=== PATIENT | male | born 1945 | race Hispanic/Latino ===

== ENCOUNTER 2018-12-10 20:27 | Emergency (ER) | payer OTHER | END 2018-12-10 21:23 | disposition home or self-care (01) | LOC: EDH 20:27 | DX: S60.352A Superficial foreign body of left thumb, initial encounter (principal); I10 Essential (primary) hypertension; Z88.0 Allergy status to penicillin; Z87.891 Personal history of nicotine dependence; Z98.890 Other specified postprocedural states; W26.8XXA Contact with other sharp object(s), not elsewhere classified, initial encounter; Y93.89 Activity, other specified; Y92.89 Other specified places as the place of occurrence of the external cause; Y99.8 Other external cause status | CPT/HCPCS: 73140 ==

== ENCOUNTER 2022-02-05 11:35 | Inpatient (IN) | payer OTHER ==
[~2022-02-05] VITALS: Ht 175.3 cm; Wt 77.9 kg
[2022-02-05 12:13] LABS: BASOPHILS % (AUTO) 0.7 % (0.0-5.0); EOSINOPHILS % (AUTO) 1.8 % (0.0-8.0); HEMATOCRIT 41.5 % (42-54); LYMPHOCYTES % (AUTO) 18.1 % (21.0-51.0); MEAN CORPUSCULAR HEMOGLOBIN 29.9 pg (27.0-33.0); MEAN CORPUSCULAR HGB CONC 34.5 g/dL (32.0-36.0); MEAN CORPUSCULAR VOLUME 86.6 fL (79-99); MONOCYTES % (AUTO) 11.3 % (3.0-13.0); NEUTROPHILS % (AUTO) 67.4 % (40.0-77.0); PLATELET COUNT (AUTO) 193 K/uL (130-400); RED BLOOD CELL COUNT(AUTO) 4.79 MIL/uL (4.50-6.20); RED CELL DISTRIBUTION WIDTH 13.8 % (11.0-15.5); WHITE BLOOD COUNT (AUTO) 5.7 K/uL (4.8-10.8)
[2022-02-05 12:16] LABS: APPEARANCE,URINE CLEAR (CLEAR); BILIRUBIN,URINE LARGE (NEGATIVE); COLOR,URINE DARK YELLOW (YELLOW); GLUCOSE, URINE (UA) NEGATIVE (NEGATIVE); KETONES,URINE NEGATIVE (NEGATIVE); LEUKOCYTE ESTERASE ,URINE NEGATIVE (NEGATIVE); NITRATE,URINE NEGATIVE (NEGATIVE); OCCULT BLOOD,URINE NEGATIVE (NEGATIVE); PH,URINE 6.5 (5.0-8.0); PROTEIN,URINE TRACE mg/dL (NEGATIVE)
[2022-02-05 12:23] LABS: CARBON DIOXIDE 28 mmol/L (21-32); CHLORIDE 99 mmol/L (101-111); CREATININE 1.1 mg/dL (0.5-1.5); GLOMERULAR FILTR. RATE CALC 69 mL/min (>60); GLUCOSE,RANDOM 192 mg/dL (70-105); POTASSIUM 3.7 mmol/L (3.5-5.1); SODIUM SERUM 136 mmol/L (136-145); UREA NITROGEN, BLOOD 13 mg/dL (7-18)
[2022-02-05 12:25] LABS: INR 0.98 (0.85-1.15); PROTHROMBIN TIME 10.7 SEC (9.6-11.6)
[2022-02-05 12:26] LABS: PARTIAL THROMBOPLASTIN TIME 26.6 SEC (26.3-35.5)
[2022-02-05 12:28] LABS: ALANINE AMINOTRANSFERASE 156 U/L (12-78); ALBUMIN 3.6 g/dL (3.5-5.0); ASPARTATE AMINOTRANSFERASE 73 U/L (10-37); TOTAL PROTEIN, SERUM 7.5 g/dL (6.0-8.3)
[2022-02-05 12:46] LABS: AMMONIA < 10 umol/L (11-32)
[2022-02-05 13:06] LABS: BACTERIA,URINE None Seen /HPF (None Seen); RBC,URINE None Seen /HPF (0-1); SQUAMOUS EPITHELIAL CELL,UR 0-2 /HPF (0-2); WBC,URINE None Seen /HPF (0-1)
[2022-02-05] MEDS ORDERED: DiphenhydrAMINE HCL 50 MG/ML VIAL IV ONE (14:00)
[2022-02-05] MEDS ORDERED: 0.9% NACL 500ML IV.SOLN 500 ML IV ONE (14:00)
[2022-02-05] MEDS ORDERED: ONDANSETRON 4MG INJ IVP ONE (14:00)
[2022-02-05] MEDS ORDERED: MORPHINE 2 MG SYG IVP ONE (14:00)
[2022-02-05] MEDS ORDERED: IOHEXOL 350 MG/ML 100ML INFUS..BTL IV ONE (14:08)
[2022-02-05] MEDS ORDERED: BISACODYL 5 MG TABLET.DR PO PRN (17:00)
[2022-02-05] MEDS ORDERED: ONDANSETRON 4MG INJ IV PRN (17:00)
[2022-02-05] MEDS ORDERED: HYDROMORPHONE 0.5 MG SYG (0.5MG/0.5ML) IVP PRN ×2 (17:00)
[2022-02-05] MEDS ORDERED: NITROGLYCERIN 0.4 MG SL TAB SL PRN (17:00)
[2022-02-05] MEDS ORDERED: ACETAMINOPHEN 325 MG TAB PO PRN ×2 (17:00)
[2022-02-05] MEDS ORDERED: DiphenhydrAMINE HCL 50 MG/ML VIAL IV PRN (17:00)
[2022-02-05] MEDS: 0.9%NACL 1000ML 1,000 ML IV SCH (17:08)
[2022-02-05] MEDS ORDERED: TAMS-1 PO (17:55)
[2022-02-05] MEDS ORDERED: OMEP40CA21 PO (17:55)
[2022-02-05] MEDS ORDERED: LISI40TA9 PO (17:55)
[2022-02-05] MEDS ORDERED: HYDR12.54 PO (17:55)
[2022-02-05 18:15] VITALS: BP 124/66
[2022-02-05 19:30] LABS: ALBUMIN 4.1 g/dL (3.5-5.0); BILIRUBIN,DIRECT 7.4 mg/dL (0.0-0.3); TOTAL PROTEIN, SERUM 7.9 g/dL (6.0-8.3)
[2022-02-05 20:00] VITALS: BP 134/62
[2022-02-05] MEDS: FAMOTIDINE 20MG VIAL IV SCH (20:54)
[2022-02-06] VITALS (21 sets, daily range): BP systolic 100–166; BP diastolic 55–98
[2022-02-06] MEDS: 0.9%NACL 1000ML 1,000 ML IV SCH ×2 (02:50→20:42)
[2022-02-06 04:44] LABS: HEMATOCRIT 38.9 % (42-54); MEAN CORPUSCULAR HEMOGLOBIN 29.7 pg (27.0-33.0); MEAN CORPUSCULAR HGB CONC 34.2 g/dL (32.0-36.0); MEAN CORPUSCULAR VOLUME 86.8 fL (79-99); RED BLOOD CELL COUNT(AUTO) 4.48 MIL/uL (4.50-6.20); WHITE BLOOD COUNT (AUTO) 4.7 K/uL (4.8-10.8)
[2022-02-06 04:59] LABS: PROTHROMBIN TIME 10.9 SEC (9.6-11.6)
[2022-02-06] MEDS: FAMOTIDINE 20MG VIAL IV SCH ×2 (08:54→20:42)
[2022-02-06] MEDS ORDERED: LORAZEPAM 2 MG/ML 1 ML VIAL IVP SCH (13:00)
[2022-02-06] MEDS ORDERED: LORAZEPAM 2 MG/ML 1 ML VIAL IM ONE (13:00)
[2022-02-06] MEDS ORDERED: LORAZEPAM 2 MG/ML 1 ML VIAL IVP ONE (13:00)
[2022-02-06] MEDS ORDERED: LIDOCAINE PF 100MG/5ML (2%) SYRINGE 5ML ONE (14:43)
[2022-02-06] MEDS ORDERED: DEXAMETHASONE SOD PHOSPHATE 10MG/ML 1ML VIAL ONE (14:43)
[2022-02-06] MEDS ORDERED: SUCCINYLCHOLINE CHLORIDE 20 MG/ML 10 ML VIAL ONE (14:43)
[2022-02-06] MEDS ORDERED: MIDAZOLAM HCL 1 MG/ML 2ML VIAL ONE (14:43)
[2022-02-06] MEDS ORDERED: ONDANSETRON 4MG INJ ONE (14:44)
[2022-02-06] MEDS ORDERED: FENTANYL CITRATE PF 50 MCG/1 ML 2ML VIAL ONE (14:44)
[2022-02-06] MEDS ORDERED: NEOSTIGMINE 5MG/5ML SYR IV ONE (14:44)
[2022-02-06] MEDS ORDERED: PROPOFOL 10 MG/ML 20ML VIAL IV ONE (14:44)
[2022-02-06] MEDS ORDERED: ROCURONIUM 10MG/1ML SYR 10 MG/ML ML ONE (14:44)
[2022-02-06] MEDS ORDERED: GLYCOPYRROLATE 1 MG/5 ML SYRINGE ONE (14:44)
[2022-02-06] MEDS ORDERED: IOHEXOL-350 50ML VIAL IV ONE (14:58)
[2022-02-06] MEDS ORDERED: GLUCAGON 1MG KIT 1 MG ML ONE (15:32)
[2022-02-07 00:34] LABS: HEPATITIS A IGM ANTIBODY Non-Reactive (Nonreactive); HEPATITIS B CORE IGM ANTIBODY Non-Reactive (Negative); HEPATITIS B SURFACE ANTIGEN Non-Reactive (Nonreactive); HEPATITIS C ANTIBODY Non-Reactive (Nonreactive)
[2022-02-07 03:21] VITALS: BP 134/74
[2022-02-07 07:00] VITALS: BP 135/71
[2022-02-07] MEDS: 0.9%NACL 1000ML 1,000 ML IV SCH ×2 (08:53→20:07)
[2022-02-07] MEDS: FAMOTIDINE 20MG VIAL IV SCH ×2 (08:53→20:07)
[2022-02-07 10:14] LABS: BASOPHILS % (AUTO) 0.2 % (0.0-5.0); HEMATOCRIT 40.5 % (42-54); LYMPHOCYTES % (AUTO) 10.9 % (21.0-51.0); MEAN CORPUSCULAR HEMOGLOBIN 29.8 pg (27.0-33.0); MEAN CORPUSCULAR HGB CONC 34.6 g/dL (32.0-36.0); MEAN CORPUSCULAR VOLUME 86.2 fL (79-99); MONOCYTES % (AUTO) 9.2 % (3.0-13.0); NEUTROPHILS % (AUTO) 79.1 % (40.0-77.0); PLATELET COUNT (AUTO) 194 K/uL (130-400); WHITE BLOOD COUNT (AUTO) 6.6 K/uL (4.8-10.8)
[2022-02-07 10:15] LABS: CREATININE 1.3 mg/dL (0.5-1.5); POTASSIUM 3.6 mmol/L (3.5-5.1)
[2022-02-07 10:20] LABS: ALBUMIN 3.1 g/dL (3.5-5.0); TOTAL PROTEIN, SERUM 6.8 g/dL (6.0-8.3)
[2022-02-07] MEDS ORDERED: LORAZEPAM 1 MG TABLET PO SCH (10:30)
[2022-02-07 11:00] VITALS: BP 141/72
[2022-02-07 15:05] VITALS: BP 115/71
[2022-02-07 20:33] VITALS: BP 135/66
[2022-02-07 23:24] VITALS: BP 127/60
[2022-02-08] MEDS: 0.9%NACL 1000ML 1,000 ML IV SCH (04:21)
[2022-02-08 04:26] VITALS: BP 142/76
[2022-02-08 07:20] VITALS: BP 145/71
[2022-02-08] MEDS: FAMOTIDINE 20MG VIAL IV SCH (10:57)
[2022-02-08 11:00] VITALS: BP 156/73
[2022-02-08 14:17] LABS: HEMATOCRIT 38.9 % (42-54); MEAN CORPUSCULAR HEMOGLOBIN 29.6 pg (27.0-33.0); MEAN CORPUSCULAR HGB CONC 34.2 g/dL (32.0-36.0); MEAN CORPUSCULAR VOLUME 86.4 fL (79-99); RED BLOOD CELL COUNT(AUTO) 4.5 MIL/uL (4.50-6.20); RED CELL DISTRIBUTION WIDTH 14.5 % (11.0-15.5); WHITE BLOOD COUNT (AUTO) 5.3 K/uL (4.8-10.8)
[2022-02-08 14:27] LABS: POTASSIUM 3.1 mmol/L (3.5-5.1)
[2022-02-08] MEDS ORDERED: LISINOPRIL 10 MG TABLET PO SCH (14:30)
[2022-02-08 14:31] LABS: ALBUMIN 2.9 g/dL (3.5-5.0); MAGNESIUM 1.7 mg/dL (1.80-2.40); PHOSPHORUS 2.7 mg/dL (2.5-4.9); TOTAL PROTEIN, SERUM 6.3 g/dL (6.0-8.3)
[2022-02-08 15:00] VITALS: BP 148/73
[2022-02-08 20:29] VITALS: BP 137/68
[2022-02-08] MEDS ORDERED: MAGNESIUM OXIDE 400 MG TABLET PO SCH (22:30)
[2022-02-08] MEDS ORDERED: KCL 20 MEQ ERTAB PO ONE ×2 (22:30→22:57)
[2022-02-08] MEDS ORDERED: MAGNESIUM OXIDE 400 MG TABLET PO ONE (22:57)
[2022-02-09] VITALS (16 sets, daily range): BP systolic 90–153; BP diastolic 56–81
[2022-02-09] MEDS: TAMSULOSIN HCL 0.4 MG CAP.ER.24H PO SCH (08:48)
[2022-02-09] MEDS: HYDROCHLOROTHIAZIDE 25 MG TABLET PO SCH (08:48)
[2022-02-09] MEDS: LISINOPRIL 20 MG TABLET PO SCH (08:50)
[2022-02-09] MEDS ORDERED: LISINOPRIL 10 MG TABLET PO SCH (09:00)
[2022-02-09] MEDS ORDERED: PROPOFOL 10 MG/ML 20ML VIAL IV ONE ×2 (16:44→17:09)
[2022-02-09] MEDS ORDERED: FENTANYL CITRATE PF 50 MCG/1 ML 2ML VIAL ONE (16:44)
[2022-02-09] MEDS ORDERED: SUCCINYLCHOLINE 200MG/10ML SYR ONE (16:45)
[2022-02-09] MEDS ORDERED: LIDOCAINE HCL 1% 20 ML VIAL ONE (16:45)
[2022-02-09] MEDS ORDERED: IOHEXOL-350 50ML VIAL IV ONE (16:55)
[2022-02-10] VITALS: BP 134/64
[2022-02-10 04:08] LABS: HEMATOCRIT 36.1 % (42-54); MEAN CORPUSCULAR HEMOGLOBIN 29.7 pg (27.0-33.0); MEAN CORPUSCULAR HGB CONC 34.6 g/dL (32.0-36.0); MEAN CORPUSCULAR VOLUME 85.7 fL (79-99); RED BLOOD CELL COUNT(AUTO) 4.21 MIL/uL (4.50-6.20); RED CELL DISTRIBUTION WIDTH 14.8 % (11.0-15.5); WHITE BLOOD COUNT (AUTO) 5.6 K/uL (4.8-10.8)
[2022-02-10 04:11] VITALS: BP 120/67
[2022-02-10 04:21] LABS: INR 1.1 (0.85-1.15); PROTHROMBIN TIME 11.9 SEC (9.6-11.6)
[2022-02-10 04:22] LABS: PARTIAL THROMBOPLASTIN TIME 26.8 SEC (26.3-35.5)
[2022-02-10 04:28] LABS: ALBUMIN 2.5 g/dL (3.5-5.0); CREATININE 0.9 mg/dL (0.5-1.5); POTASSIUM 4.5 mmol/L (3.5-5.1); TOTAL PROTEIN, SERUM 6.1 g/dL (6.0-8.3)
[2022-02-10 08:00] VITALS: BP 150/77
[2022-02-10] MEDS: LISINOPRIL 20 MG TABLET PO SCH (08:29)
[2022-02-10] MEDS: HYDROCHLOROTHIAZIDE 25 MG TABLET PO SCH (08:29)
[2022-02-10] MEDS: TAMSULOSIN HCL 0.4 MG CAP.ER.24H PO SCH (08:29)
[2022-02-10] MEDS: PANTOPRAZOLE 40 MG/VIAL IVP SCH (08:29)
[2022-02-10 11:44] VITALS: BP 135/76
[2022-02-10 16:00] VITALS: BP 117/69
[2022-02-10 20:27] VITALS: BP 138/72
[2022-02-11 00:12] VITALS: BP 117/61
[2022-02-11 03:47] LABS: BASOPHILS % (AUTO) 0.5 % (0.0-5.0); EOSINOPHILS % (AUTO) 3.1 % (0.0-8.0); HEMATOCRIT 39.2 % (42-54); LYMPHOCYTES % (AUTO) 17.7 % (21.0-51.0); MEAN CORPUSCULAR HEMOGLOBIN 29.7 pg (27.0-33.0); MEAN CORPUSCULAR HGB CONC 35.2 g/dL (32.0-36.0); MEAN CORPUSCULAR VOLUME 84.3 fL (79-99); MONOCYTES % (AUTO) 14.3 % (3.0-13.0); PLATELET COUNT (AUTO) 200 K/uL (130-400); RED BLOOD CELL COUNT(AUTO) 4.65 MIL/uL (4.50-6.20); RED CELL DISTRIBUTION WIDTH 14.8 % (11.0-15.5); WHITE BLOOD COUNT (AUTO) 5.8 K/uL (4.8-10.8)
[2022-02-11 04:05] LABS: ALBUMIN 2.9 g/dL (3.5-5.0); CREATININE 0.9 mg/dL (0.5-1.5); POTASSIUM 3.4 mmol/L (3.5-5.1); TOTAL PROTEIN, SERUM 6.5 g/dL (6.0-8.3)
[2022-02-11 04:49] VITALS: BP 122/69
[2022-02-11 08:00] VITALS: BP 142/78
[2022-02-11] MEDS: LISINOPRIL 20 MG TABLET PO SCH (08:53)
[2022-02-11] MEDS: DIPHENHYDRAMINE HCL 25 MG CAPSULE PO PRN ×2 (08:53→21:22)
[2022-02-11] MEDS: TAMSULOSIN HCL 0.4 MG CAP.ER.24H PO SCH (08:53)
[2022-02-11] MEDS: PANTOPRAZOLE 40 MG/VIAL IVP SCH (08:53)
[2022-02-11] MEDS: HYDROCHLOROTHIAZIDE 25 MG TABLET PO SCH (08:53)
[2022-02-11 11:49] VITALS: BP 137/78
[2022-02-11 16:00] VITALS: BP 142/71
[2022-02-11 21:17] VITALS: BP 143/70
[2022-02-12] VITALS (23 sets, daily range): BP systolic 107–148; BP diastolic 60–81
[2022-02-12 04:00] LABS: BASOPHILS % (AUTO) 0.7 % (0.0-5.0); EOSINOPHILS % (AUTO) 4.1 % (0.0-8.0); HEMATOCRIT 36.1 % (42-54); LYMPHOCYTES % (AUTO) 18.7 % (21.0-51.0); MEAN CORPUSCULAR HEMOGLOBIN 29.6 pg (27.0-33.0); MEAN CORPUSCULAR HGB CONC 35.5 g/dL (32.0-36.0); MEAN CORPUSCULAR VOLUME 83.6 fL (79-99); MONOCYTES % (AUTO) 16.1 % (3.0-13.0); NEUTROPHILS % (AUTO) 58.9 % (40.0-77.0); PLATELET COUNT (AUTO) 195 K/uL (130-400); RED BLOOD CELL COUNT(AUTO) 4.32 MIL/uL (4.50-6.20); RED CELL DISTRIBUTION WIDTH 14.9 % (11.0-15.5); WHITE BLOOD COUNT (AUTO) 5.4 K/uL (4.8-10.8)
[2022-02-12 04:17] LABS: ALBUMIN 2.8 g/dL (3.5-5.0); POTASSIUM 3.1 mmol/L (3.5-5.1); TOTAL PROTEIN, SERUM 6.3 g/dL (6.0-8.3)
[2022-02-12] MEDS: 0.9%NACL 1000ML 1,000 ML IV SCH ×4 (07:48→23:00)
[2022-02-12] MEDS: PANTOPRAZOLE 40 MG/VIAL IVP SCH (08:42)
[2022-02-12] MEDS: LISINOPRIL 20 MG TABLET PO SCH (08:43)
[2022-02-12] MEDS: HYDROCHLOROTHIAZIDE 25 MG TABLET PO SCH (08:43)
[2022-02-12] MEDS: TAMSULOSIN HCL 0.4 MG CAP.ER.24H PO SCH (08:43)
[2022-02-12] MEDS ORDERED: LIDOCAINE PF 100MG/5ML (2%) SYRINGE 5ML ONE (13:17)
[2022-02-12] MEDS ORDERED: SUCCINYLCHOLINE CHLORIDE 20 MG/ML 10 ML VIAL ONE (13:17)
[2022-02-12] MEDS ORDERED: DEXAMETHASONE SOD PHOSPHATE 10MG/ML 1ML VIAL ONE (13:17)
[2022-02-12] MEDS ORDERED: NEOSTIGMINE 5MG/5ML SYR IV ONE (13:18)
[2022-02-12] MEDS ORDERED: FENTANYL CITRATE PF 50 MCG/1 ML 2ML VIAL ONE ×2 (13:18→16:02)
[2022-02-12] MEDS ORDERED: ONDANSETRON 4MG INJ ONE (13:18)
[2022-02-12] MEDS ORDERED: MIDAZOLAM HCL 1 MG/ML 2ML VIAL ONE (13:18)
[2022-02-12] MEDS ORDERED: ROCURONIUM 10MG/1ML SYR 10 MG/ML ML ONE (13:18)
[2022-02-12] MEDS ORDERED: PROPOFOL 10 MG/ML 20ML VIAL IV ONE (13:18)
[2022-02-12] MEDS ORDERED: GLYCOPYRROLATE 1 MG/5 ML SYRINGE ONE (13:18)
[2022-02-12] MEDS ORDERED: IODIXANOL 320 MG/ML 100 ML VIAL ONE (15:51)
[2022-02-12] MEDS ORDERED: LIDOCAINE HCL 1% 20 ML VIAL ONE (15:51)
[2022-02-12] MEDS ORDERED: SUGAMMADEX SODIUM 200 MG/2 ML VIAL IV ONE (16:49)
[2022-02-12] MEDS ORDERED: CLINDAMYCIN IV SCH (17:00)
[2022-02-12] MEDS ORDERED: CLINDAMYCIN IVPB 900MG/50ML 50 ML IV SCH (17:00)
[2022-02-12] MEDS ORDERED: D5W IV SCH (17:00)
[2022-02-12] MEDS ORDERED: KETOROLAC 15MG/ML VIAL (15MG/ML) ONE (19:53)
[2022-02-12] MEDS ORDERED: KETOROLAC 15MG/ML VIAL (15MG/ML) IV PRN (20:00)
[2022-02-12] MEDS: CLINDAMYCIN IVPB 900MG/50ML 50 ML IV SCH (20:11)
[2022-02-12] MEDS ORDERED: MORPHINE 2 MG SYG IVP PRN (20:30)
[2022-02-12] MEDS ORDERED: ONDANSETRON 4MG INJ IVP PRN (20:30)
[2022-02-13 03:41] VITALS: BP 139/74
[2022-02-13 03:57] LABS: BASOPHILS % (AUTO) 0.2 % (0.0-5.0); HEMATOCRIT 36.9 % (42-54); LYMPHOCYTES % (AUTO) 14.3 % (21.0-51.0); MEAN CORPUSCULAR HEMOGLOBIN 29.6 pg (27.0-33.0); MEAN CORPUSCULAR VOLUME 82.2 fL (79-99); MONOCYTES % (AUTO) 1.6 % (3.0-13.0); NEUTROPHILS % (AUTO) 81.6 % (40.0-77.0); PLATELET COUNT (AUTO) 196 K/uL (130-400); RED BLOOD CELL COUNT(AUTO) 4.49 MIL/uL (4.50-6.20); RED CELL DISTRIBUTION WIDTH 15.1 % (11.0-15.5); WHITE BLOOD COUNT (AUTO) 4.3 K/uL (4.8-10.8)
[2022-02-13 04:21] LABS: ALBUMIN 2.5 g/dL (3.5-5.0); CREATININE 1.3 mg/dL (0.5-1.5); POTASSIUM 3.8 mmol/L (3.5-5.1); TOTAL PROTEIN, SERUM 6.1 g/dL (6.0-8.3)
[2022-02-13] MEDS: CLINDAMYCIN IVPB 900MG/50ML 50 ML IV SCH (05:31)
[2022-02-13] MEDS: 0.9%NACL 1000ML 1,000 ML IV SCH ×2 (07:00→23:00)
[2022-02-13 08:00] VITALS: BP 135/75
[2022-02-13] MEDS: HYDROCHLOROTHIAZIDE 25 MG TABLET PO SCH (08:15)
[2022-02-13] MEDS: TAMSULOSIN HCL 0.4 MG CAP.ER.24H PO SCH (08:16)
[2022-02-13] MEDS: LISINOPRIL 20 MG TABLET PO SCH (08:16)
[2022-02-13] MEDS: PANTOPRAZOLE 40 MG TAB DR PO SCH (08:16)
[2022-02-13 12:00] VITALS: BP 126/73
[2022-02-13 16:00] VITALS: BP 117/57
[2022-02-13 20:20] VITALS: BP 123/64
[2022-02-13] MEDS: DIPHENHYDRAMINE HCL 25 MG CAPSULE PO PRN (22:44)
[2022-02-13] MEDS ORDERED: BENZOCAINE/MENTH/CETYLPYRD CL 1 EACH LOZENGE MM PRN (23:00)
[2022-02-13 23:34] VITALS: BP 109/65
[2022-02-14 04:05] VITALS: BP 121/64
[2022-02-14 05:11] LABS: ALBUMIN 2.3 g/dL (3.5-5.0); CREATININE 1.3 mg/dL (0.5-1.5); TOTAL PROTEIN, SERUM 5.4 g/dL (6.0-8.3)
[2022-02-14 05:15] LABS: POTASSIUM 2.9 mmol/L (3.5-5.1)
[2022-02-14] MEDS ORDERED: POTASSIUM CHLORIDE 20MEQ/100ML 100 ML IV PRN (06:00)
[2022-02-14] MEDS ORDERED: LIDOCAINE HCL-MPF 1% 2ML VIAL IV PRN (06:00)
[2022-02-14] MEDS ORDERED: POTASSIUM CHLORIDE 10% ELIXIR 20 MEQ/15 ML UDCUP PO PRN (06:00)
[2022-02-14] MEDS ORDERED: KCL 20 MEQ ERTAB PO PRN (06:00)
[2022-02-14] MEDS: 0.9%NACL 1000ML 1,000 ML IV SCH (07:00)
[2022-02-14 08:00] VITALS: BP 127/71
[2022-02-14] MEDS: TAMSULOSIN HCL 0.4 MG CAP.ER.24H PO SCH (09:04)
[2022-02-14] MEDS: HYDROCHLOROTHIAZIDE 25 MG TABLET PO SCH (09:05)
[2022-02-14] MEDS: PANTOPRAZOLE 40 MG TAB DR PO SCH (09:06)
[2022-02-14] MEDS: LISINOPRIL 20 MG TABLET PO SCH (09:07)
[2022-02-14] MEDS ORDERED: KCL 20 MEQ ERTAB PO ONE (09:30)
[2022-02-14 12:00] VITALS: BP 123/70
[2022-02-14] MEDS ORDERED: LISI20TA24 PO (13:30)
== END 2022-02-14 16:10 | disposition home or self-care (01) | DRG 444 ==
LOC: EDH 11:35 → EDHIP 16:34 → 4BH 18:13 → 4AH 02-06 17:11
PROVIDERS: ADMIT Internal Medicine; ATTEND Internal Medicine
PROC: 0FJB8ZZ Inspection of Hepatobiliary Duct, Via Natural or Artificial Opening Endoscopic (ICD-10-PCS; 2022-02-06)
PROC: 0FJB8ZZ Inspection of Hepatobiliary Duct, Via Natural or Artificial Opening Endoscopic (ICD-10-PCS; 2022-02-09)
PROC: BF131ZZ Fluoroscopy of Gallbladder and Bile Ducts using Low Osmolar Contrast (ICD-10-PCS; 2022-02-09)
PROC: 0F9930Z Drainage of Common Bile Duct with Drainage Device, Percutaneous Approach (ICD-10-PCS; principal; 2022-02-12)
DX: K83.1 Obstruction of bile duct (principal); U07.1 COVID-19; K44.9 Diaphragmatic hernia without obstruction or gangrene; N40.0 Benign prostatic hyperplasia without lower urinary tract symptoms; I10 Essential (primary) hypertension; Z90.49 Acquired absence of other specified parts of digestive tract; Z87.19 Personal history of other diseases of the digestive system
CPT/HCPCS: 10030; 36415; 43237; 43260; 47534; 74177; 74183; 74330; 76700; 80048; 80053; 80074; 80076; 81001; 82140; 82150; 82784; 82977; 83690; 83735; 84100; 84145; 85025; 85027; 85610; 85730; 87635; C1729; C1769; C1894; C9113; G0378; J0330; J1100; J1170; J1200; J1610; J1644; J1885; J2001; J2250; J2405; J2704; J2710; J3010; J3490; J7030; J7040; Q0163; Q9967; U0003

== ENCOUNTER 2022-04-21 19:04 | Inpatient (IN) | payer OTHER ==
[~2022-04-21] VITALS: Ht 175.3 cm; Wt 59.0 kg
[2022-04-21 21:30] VITALS: BP 105/74
[2022-04-21] MEDS ORDERED: HYDROMORPHONE 1 MG INJ IV PRN (21:30)
[2022-04-21 21:49] LABS: BASOPHILS % (AUTO) 0.3 % (0.0-5.0); EOSINOPHILS % (AUTO) 0.1 % (0.0-8.0); HEMATOCRIT 23.8 % (42-54); LYMPHOCYTES % (AUTO) 6.7 % (21.0-51.0); MEAN CORPUSCULAR HEMOGLOBIN 29.9 pg (27.0-33.0); MEAN CORPUSCULAR HGB CONC 33.2 g/dL (32.0-36.0); MEAN CORPUSCULAR VOLUME 90.2 fL (79-99); MONOCYTES % (AUTO) 5.6 % (3.0-13.0); NEUTROPHILS % (AUTO) 84.1 % (40.0-77.0); PLATELET COUNT (AUTO) 275 K/uL (130-400); RED BLOOD CELL COUNT(AUTO) 2.64 MIL/uL (4.50-6.20); RED CELL DISTRIBUTION WIDTH 15.4 % (11.0-15.5); WHITE BLOOD COUNT (AUTO) 16.4 K/uL (4.8-10.8)
[2022-04-21 22:08] LABS: ALBUMIN 1.8 g/dL (3.5-5.0); AMYLASE 25 U/L (25-115); CREATININE 1.3 mg/dL (0.5-1.5); LIPASE 77 U/L (114-286); POTASSIUM 3.2 mmol/L (3.5-5.1); TOTAL PROTEIN, SERUM 5.4 g/dL (6.0-8.3)
[2022-04-21] MEDS: ONDANSETRON 4MG INJ IV PRN (22:48)
[2022-04-21] MEDS: PANTOPRAZOLE 40MG INJ 80 MG in 0.9%NACL 100ML 100 ML IV SCH (22:49)
[2022-04-21] MEDS: OCTREOTIDE ACETATE 1,250 MCG in 0.9% NACL 250ML 250 ML IV SCH (22:49)
[2022-04-21] MEDS: 0.9%NACL 1000ML 1,000 ML IV SCH (23:01)
[2022-04-21] MEDS ORDERED: FLUC200P12 IV (23:30)
[2022-04-21] MEDS ORDERED: DRON10CA5 PO (23:30)
[2022-04-21] MEDS ORDERED: HYDR-4060 PO (23:30)
[2022-04-21] MEDS ORDERED: NUTR1PAC14 PO (23:30)
[2022-04-21] MEDS ORDERED: [UNRECOGNIZED DRUG - CODE] IV (23:30)
[2022-04-21] MEDS ORDERED: VANC1IVPB IV (23:30)
[2022-04-21] MEDS ORDERED: ONDA22I IM (23:30)
[2022-04-21] MEDS ORDERED: ACET325C6 PO (23:30)
[2022-04-21] MEDS ORDERED: CETI-89 PO (23:30)
[2022-04-21] MEDS ORDERED: TAMS-1 PO (23:30)
[2022-04-21] MEDS ORDERED: PANT40VI IV (23:30)
[2022-04-21] MEDS ORDERED: GENT3.5O6 OP (23:30)
[2022-04-21] MEDS ORDERED: MAAL30 PO (23:30)
[2022-04-21] MEDS ORDERED: METO10DI2 IJ (23:30)
[2022-04-21] MEDS ORDERED: LACT10SO9 PO (23:30)
[2022-04-21] MEDS ORDERED: AZTR2VIA2 IJ (23:30)
[2022-04-21] MEDS ORDERED: FAMO10VI2 IV (23:30)
[2022-04-21] MEDS ORDERED: BALS60OI TP (23:30)
[2022-04-22] VITALS (36 sets, daily range): BP systolic 92–138; BP diastolic 55–82
[2022-04-22] MEDS ORDERED: PROMETHAZINE HCL 25 MG/ML 1ML AMPULE IM ONE
[2022-04-22] MEDS: AZTREONAM 2 GM VIAL IV SCH ×3 (01:00→18:41)
[2022-04-22] MEDS: VANCOMYCIN KIT 1 GM/250 ML IV.KIT IV SCH ×2 (01:00→02:58)
[2022-04-22 02:11] LABS: HEMATOCRIT 21.9 % (42-54)
[2022-04-22] MEDS ORDERED: 0.9% NACL 250ML 250 ML ONE ×2 (02:49→03:40)
[2022-04-22] MEDS: ONDANSETRON 4MG INJ IV PRN (07:53)
[2022-04-22] MEDS: FLUCONAZOLE 200 MG/NS 100 ML IV SCH (08:25)
[2022-04-22 08:51] LABS: HEMATOCRIT 24.7 % (42-54)
[2022-04-22] MEDS ORDERED: GENTAMICIN SULFATE 0.3% 3.5 GM OPHTH OINT OP SCH (09:00)
[2022-04-22] MEDS ORDERED: VANCOMYCIN 500MG+NS 100ML IVPB IV SCH (09:00)
[2022-04-22] MEDS ORDERED: COMPOUND IV REFRIGERATED 1 EACH IVSOLN MISC PRN (09:30)
[2022-04-22] MEDS ORDERED: METOCLOPRAMIDE 10 MG/2 ML VIAL IVP SCH (09:30)
[2022-04-22] MEDS: PANTOPRAZOLE 40MG INJ 80 MG in 0.9%NACL 100ML 100 ML IV SCH (09:33)
[2022-04-22] MEDS: VANCOMYCIN 500MG+NS 100ML 100 ML IV SCH ×2 (09:34→21:00)
[2022-04-22] MEDS: PHARMACY COMMUNICATION MISC SCH (10:20)
[2022-04-22] MEDS: 0.9%NACL 1000ML 1,000 ML IV SCH ×2 (10:50→18:49)
[2022-04-22] MEDS ORDERED: CLINDAMYCIN IVPB 900MG/50ML 50 ML IV ONE (14:10)
[2022-04-22] MEDS ORDERED: PROPOFOL 1000 MG/100 ML 100 ML IV ONE (14:58)
[2022-04-22] MEDS ORDERED: NOREPINEPHRIN 4MG/NS 250ML 250 ML IV ONE (14:58)
[2022-04-22] MEDS ORDERED: ACETAMINOPHEN 325 MG TAB PO PRN (15:30)
[2022-04-22] MEDS ORDERED: GLUCAGON 1MG KIT 1 MG ML IM PRN (15:30)
[2022-04-22] MEDS ORDERED: POTASSIUM CHLORIDE 10% ELIXIR 20 MEQ/15 ML UDCUP PO PRN (15:30)
[2022-04-22] MEDS ORDERED: POTASSIUM CHLORIDE 20MEQ/100ML 100 ML IV PRN (15:30)
[2022-04-22] MEDS ORDERED: LIDOCAINE HCL-MPF 1% 2ML VIAL IV PRN ×2 (15:30)
[2022-04-22] MEDS ORDERED: DEXTROSE 50%-WATER 50 ML DISP.SYRIN IV PRN (15:30)
[2022-04-22] MEDS ORDERED: ONDANSETRON 4MG INJ IVP PRN (15:30)
[2022-04-22] MEDS ORDERED: KCL 20 MEQ ERTAB PO PRN (15:30)
[2022-04-22] MEDS ORDERED: NOREPINEPHRIN 4MG/NS 250ML 250 ML IV PRN (15:30)
[2022-04-22] MEDS ORDERED: ACETAMINOPHEN 650 MG SUPPOSITORY RC PRN (15:30)
[2022-04-22] MEDS ORDERED: MAGNESIUM 2GM PREMIX 50ML 50 ML IV PRN (15:30)
[2022-04-22 15:54] LABS: HEMATOCRIT 24.4 % (42-54); MEAN CORPUSCULAR HEMOGLOBIN 30.3 pg (27.0-33.0); MEAN CORPUSCULAR VOLUME 89.1 fL (79-99); NUCLEATED RED BLOOD CELLS 0.2 % (0.0-0.19); RED BLOOD CELL COUNT(AUTO) 2.74 MIL/uL (4.50-6.20); RED CELL DISTRIBUTION WIDTH 15.3 % (11.0-15.5); WHITE BLOOD COUNT (AUTO) 18.4 K/uL (4.8-10.8)
[2022-04-22 16:07] LABS: CREATININE 1.6 mg/dL (0.5-1.5); INR 2.05 (0.85-1.15); POTASSIUM 3.2 mmol/L (3.5-5.1); PROTHROMBIN TIME 21.5 SEC (9.6-11.6)
[2022-04-22 16:08] LABS: PARTIAL THROMBOPLASTIN TIME 42.9 SEC (26.3-35.5)
[2022-04-22 16:15] LABS: ALBUMIN 1.7 g/dL (3.5-5.0); TOTAL PROTEIN, SERUM 4.9 g/dL (6.0-8.3)
[2022-04-22 16:18] LABS: CHOLESTEROL 68 mg/dL (<200); HDL CHOLESTEROL 17 mg/dL (29-71); TRIGLYCERIDES 137 mg/dL (30-200)
[2022-04-22 16:19] LABS: MAGNESIUM 1.9 mg/dL (1.80-2.40); PHOSPHORUS 4.7 mg/dL (2.5-4.9)
[2022-04-22 16:19] LABS: ABG BASE EXCESS -4.3 mmol/L (-2.0-3.0); ABG HCO3 19.5 mmol/L (21.0-28.0); ABG OXYGEN SATURATION 97.1 % (95.0-99.0); ABG PCO2 31 mmHg (35-48)
[2022-04-22 16:19] LABS: LDL DIRECT 29 mg/dL (0-99)
[2022-04-22] MEDS: PROPOFOL 1000 MG/100 ML 100 ML IV PRN (18:49)
[2022-04-22] MEDS: PANTOPRAZOLE 40MG INJ 80 MG in 0.9%NACL 100ML 100 ML IVP SCH ×2 (19:21→21:32)
[2022-04-22] MEDS: POTASSIUM CHLORIDE 20MEQ/100ML 100 ML IV PRN (21:27)
[2022-04-22] MEDS: M.V.I. IV [ADULT] 10 ML in CLINIMIX 5%AA/D15W 2000ML 2,000 ML IV SCH (21:31)
[2022-04-22] MEDS: OCTREOTIDE ACETATE 1,250 MCG in 0.9% NACL 250ML 250 ML IV SCH (21:33)
[2022-04-23] VITALS (57 sets, daily range): BP systolic 88–130; BP diastolic 48–74
[2022-04-23] MEDS: IPRATROPIUM/ALBUTEROL SULFATE 3 ML SOLUTION IH SCH ×5 (00:50→23:23)
[2022-04-23] MEDS: POTASSIUM CHLORIDE 20MEQ/100ML 100 ML IV PRN ×2 (00:59→05:56)
[2022-04-23] MEDS: AZTREONAM 2 GM VIAL IV SCH ×3 (01:00→17:47)
[2022-04-23] MEDS: PROPOFOL 1000 MG/100 ML 100 ML IV PRN (03:35)
[2022-04-23 04:34] LABS: MEAN CORPUSCULAR HEMOGLOBIN 30.1 pg (27.0-33.0); MEAN CORPUSCULAR HGB CONC 31.4 g/dL (32.0-36.0); MEAN CORPUSCULAR VOLUME 95.9 fL (79-99); NUCLEATED RED BLOOD CELLS 0.2 % (0.0-0.19); RED BLOOD CELL COUNT(AUTO) 2.19 MIL/uL (4.50-6.20); RED CELL DISTRIBUTION WIDTH 16.5 % (11.0-15.5); WHITE BLOOD COUNT (AUTO) 13.2 K/uL (4.8-10.8)
[2022-04-23 05:43] LABS: HEMATOCRIT 22.8 % (42-54)
[2022-04-23 05:44] LABS: CREATININE 1.6 mg/dL (0.5-1.5); MAGNESIUM 1.9 mg/dL (1.80-2.40); PHOSPHORUS 3.2 mg/dL (2.5-4.9); POTASSIUM 3.3 mmol/L (3.5-5.1)
[2022-04-23] MEDS: PANTOPRAZOLE 40MG INJ 80 MG in 0.9%NACL 100ML 100 ML IVP SCH ×2 (05:48→17:49)
[2022-04-23] MEDS: PHARMACY COMMUNICATION MISC SCH (09:00)
[2022-04-23] MEDS: GENTAMICIN SULFATE 0.3% 3.5 GM OPHTH OINT OP SCH (09:00)
[2022-04-23] MEDS: VANCOMYCIN 750MG VIAL IVPB SCH (09:21)
[2022-04-23] MEDS: FLUCONAZOLE 200 MG/NS 100 ML IV SCH (09:21)
[2022-04-23] MEDS ORDERED: FAT EMULSIONS 20% 250ML 250 ML IV ONE (10:00)
[2022-04-23] MEDS: PHYTONADIONE 10 MG in 0.9%NACL 50ML 50 ML IVPB SCH (11:33)
[2022-04-23] MEDS: 0.9%NACL 1000ML 1,000 ML IV SCH (14:30)
[2022-04-23] MEDS: M.V.I. IV [ADULT] 10 ML in CLINIMIX 5%AA/D15W 2000ML 2,000 ML IV SCH (21:30)
[2022-04-24] VITALS (20 sets, daily range): BP systolic 112–134; BP diastolic 48–76
[2022-04-24] MEDS: AZTREONAM 2 GM VIAL IV SCH ×3 (01:17→17:27)
[2022-04-24] MEDS: 0.9%NACL 1000ML 1,000 ML IV SCH ×2 (02:50→16:10)
[2022-04-24] MEDS: PANTOPRAZOLE 40MG INJ 80 MG in 0.9%NACL 100ML 100 ML IVP SCH (04:03)
[2022-04-24] MEDS: IPRATROPIUM/ALBUTEROL SULFATE 3 ML SOLUTION IH SCH ×4 (06:46→23:23)
[2022-04-24] MEDS: GENTAMICIN SULFATE 0.3% 3.5 GM OPHTH OINT OP SCH (09:00)
[2022-04-24] MEDS: PHARMACY COMMUNICATION MISC SCH (09:00)
[2022-04-24] MEDS: PHYTONADIONE 10 MG in 0.9%NACL 50ML 50 ML IVPB SCH (09:00)
[2022-04-24] MEDS: FLUCONAZOLE 200 MG/NS 100 ML IV SCH (10:40)
[2022-04-24] MEDS: VANCOMYCIN 750MG VIAL IVPB SCH (10:40)
[2022-04-24] MEDS: M.V.I. IV [ADULT] 10 ML in CLINIMIX 5%AA/D15W 2000ML 2,000 ML IV SCH (21:00)
[2022-04-25] MEDS: AZTREONAM 2 GM VIAL IV SCH ×2 (01:46→09:12)
[2022-04-25 04:24] VITALS: BP 124/61
[2022-04-25] MEDS: 0.9%NACL 1000ML 1,000 ML IV SCH (04:36)
[2022-04-25] MEDS: IPRATROPIUM/ALBUTEROL SULFATE 3 ML SOLUTION IH SCH ×2 (06:20→11:13)
[2022-04-25 08:00] VITALS: BP 118/61
[2022-04-25] MEDS ORDERED: 0.9% NACL 250ML 250 ML ONE (08:35)
[2022-04-25] MEDS: PHYTONADIONE 10 MG in 0.9%NACL 50ML 50 ML IVPB SCH (09:00)
[2022-04-25] MEDS: GENTAMICIN SULFATE 0.3% 3.5 GM OPHTH OINT OP SCH (09:00)
[2022-04-25] MEDS: FLUCONAZOLE 200 MG/NS 100 ML IV SCH (09:11)
[2022-04-25] MEDS: VANCOMYCIN 750MG VIAL IVPB SCH (09:11)
== END 2022-04-25 14:15 | disposition hospice, home (50) | DRG 871 ==
LOC: 3CH 21:08 → 2CH 04-22 14:36 → 3AH 04-24 16:04
PROVIDERS: ADMIT Hospitalist; ATTEND Hospitalist
PROC: 30233N1 Transfusion of Nonautologous Red Blood Cells into Peripheral Vein, Percutaneous Approach (ICD-10-PCS; principal; 2022-04-22)
PROC: 0DJ08ZZ Inspection of Upper Intestinal Tract, Via Natural or Artificial Opening Endoscopic (ICD-10-PCS; 2022-04-22)
PROC: 5A1935Z Respiratory Ventilation, Less than 24 Consecutive Hours (ICD-10-PCS; 2022-04-22)
PROC: 0BH17EZ Insertion of Endotracheal Airway into Trachea, Via Natural or Artificial Opening (ICD-10-PCS; 2022-04-22)
PROC: 0DJ08ZZ Inspection of Upper Intestinal Tract, Via Natural or Artificial Opening Endoscopic (ICD-10-PCS; 2022-04-23)
DX: A41.9 Sepsis, unspecified organism (principal); E43 Unspecified severe protein-calorie malnutrition; J69.0 Pneumonitis due to inhalation of food and vomit; R65.21 Severe sepsis with septic shock; J96.91 Respiratory failure, unspecified with hypoxia; K29.71 Gastritis, unspecified, with bleeding; C78.7 Secondary malignant neoplasm of liver and intrahepatic bile duct; C25.9 Malignant neoplasm of pancreas, unspecified; Z16.24 Resistance to multiple antibiotics; D62 Acute posthemorrhagic anemia; N17.9 Acute kidney failure, unspecified; Z68.1 Body mass index [BMI] 19.9 or less, adult; K56.609 Unspecified intestinal obstruction, unspecified as to partial versus complete obstruction; D68.9 Coagulation defect, unspecified; E87.20 Acidosis, unspecified; R64 Cachexia; K92.0 Hematemesis; K31.89 Other diseases of stomach and duodenum; K81.9 Cholecystitis, unspecified; R62.7 Adult failure to thrive; Z66 Do not resuscitate; D63.8 Anemia in other chronic diseases classified elsewhere; L89.152 Pressure ulcer of sacral region, stage 2; E87.6 Hypokalemia; Z86.14 Personal history of Methicillin resistant Staphylococcus aureus infection; Z85.07 Personal history of malignant neoplasm of pancreas; Z74.01 Bed confinement status
CPT/HCPCS: 36415; 36600; 43200; 43235; 71045; 80048; 80053; 80061; 80202; 82150; 82435; 82803; 82947; 82948; 83036; 83605; 83690; 83735; 84100; 84132; 84295; 84484; 85014; 85018; 85025; 85027; 85610; 85730; 86850; 86900; 86901; 86923; 87040; 87070; 87076; 93005; 94002; 94003; 94640; 94664; A4606; C9113; G0378; J1450; J2354; J2405; J2550; J2704; J2765; J3370; J3430; J3480; J3490; J7030; J7050; P9016